=== PATIENT | female | born 1975 | race Caucasian/White ===

== ENCOUNTER 2017-05-10 14:48 | Emergency (ER) | payer MEDICAID, OTHER ==
[~2017-05-10] VITALS: Ht 154.9 cm; Wt 76.7 kg
[2017-05-10 15:10] VITALS: BP 131/76
--- NOTE | 2017-05-10 17:44 | NUR ---
Pt ambulated to bed 6
[2017-05-10 17:47] VITALS: BP 131/68
--- NOTE | 2017-05-10 17:49 | NUR ---
41/F c/o dizziness x a few days ago accompanied with nausea. Denies vomiting. Denies fever or chills. Pt c/o room spinning intermittently, worse when she closes her eyes. Denies syncope. AOX4, clear speech. VSS. Daughter at bedside. Comfort needs addressed. Placed in position of comfort.
--- NOTE | 2017-05-10 18:58 | NUR ---
PATIENT LEFT WITHOUT BEING SEEN BY DR. HIGGINS. NO FURTHER CARE PROVIDED FOR PATIENT.
== END 2017-05-10 18:58 | disposition left against medical advice (07) ==
LOC: MED 14:48
DX: R42 Dizziness and giddiness (principal); Z53.21 Procedure and treatment not carried out due to patient leaving prior to being seen by health care provider
CPT/HCPCS: 81002; 81025